=== PATIENT | male | born 1970 | race Caucasian/White ===

== ENCOUNTER 2017-07-27 22:31 | Emergency (ER) | payer MEDICARE ==
[~2017-07-27] VITALS: Ht 175.3 cm; Wt 93.2 kg
[2017-07-27 23:13] VITALS: BP 157/99; PULSE 88; RESP 16; TEMP 98.4; O2SAT 97
[2017-07-27 23:50] VITALS: BP 157/99; PULSE 88; RESP 16; TEMP 98.4; O2SAT 97
[2017-07-28] MEDS ORDERED: PERC5TAB12 PO (01:06)
[2017-07-28] MEDS ORDERED: CLIN1CAP6 PO (01:10)
[2017-07-28] MEDS ORDERED: IBUP800T23 PO (01:11)
[2017-07-28] MEDS ORDERED: KETOROLAC TROMETHAMINE 60 MG/2 ML (IM) VIAL IM ONE (01:15)
[2017-07-28] MEDS ORDERED: CLINDAMYCIN 150 MG CAP PO ONE (01:15)
--- NOTE | 2017-07-28 01:20 | PD ---
HPI Chief Complaint: Oral / Dental Pain or Problem Time Seen by Provider: 01:02 Travel History International Travel<30 days: No Contact w/Intl Traveler<30days: No Traveled to known affect area: No History of Present Illness HPI The patient is a 46-year-old male that complains of dental pain for 1 day. He has not called a dentist. He states he was chewing his food yesterday and felt his tooth crack and he felt the tooth into his gums. The pain is an aching pain with an intensity of 8/10. He denies any fever. PFSH Past Medical History Medical History: Denies Significant Hx Tetanus Vaccination: > 5 Years Influenza Vaccination: No Past Surgical History Surgical History: No Previous Surgery Social History Alcohol Use: Yes (MONTHLY) Tobacco Use: Yes (1 PPD) Substance Use: No Allergies-Medications (Allergen,Severity, Reaction): Coded Allergies: Penicillins (Verified Allergy, Unknown, 07/27/17) Reported Meds & Prescriptions Reported Meds & Active Scripts Active Ibuprofen 800 Mg Tab 800 Mg PO TID Clindamycin (Clindamycin HCl) 300 Mg Cap 300 Mg PO Q6H 10 Days Percocet (Oxycodone-Acetaminophen) 5-325 mg Tab 1 Tab PO Q4H PRN 20 Days Review of Systems Except as stated in HPI: all other systems reviewed are Neg Physical Exam Narrative GENERAL: The patient is alert, oriented 3 in moderate apparent distress with his dental pain. His vital signs show blood pressure 157/99 but are otherwise normal. SKIN: Focused skin assessment warm/dry. HEAD: Atraumatic. Normocephalic. EYES: Pupils equal and round. No scleral icterus. No injection or drainage. ENT: No nasal bleeding or discharge. Mucous membranes pink and moist. NECK: Trachea midline. No JVD. CARDIOVASCULAR: Regular rate and rhythm. No murmur appreciated. RESPIRATORY: No accessory muscle use. Clear to auscultation. Breath sounds equal bilaterally. GASTROINTESTINAL: Abdomen soft, non-tender, nondistended. Hepatic and splenic margins not palpable. MUSCULOSKELETAL: No obvious deformities. No clubbing. No cyanosis. No edema. NEUROLOGICAL: Awake and alert. No obvious cranial nerve deficits. Motor grossly within normal limits. Normal speech. PSYCHIATRIC: Appropriate mood and affect; insight and judgment normal. DENTAL: No loose or chipped teeth. No malocclusion. Tooth #6 shows apparent impaction into the gums, I cannot see the crack in the tooth. Data Data Last Documented VS Vital Signs Date Time Temp Pulse Resp B/P (MAP) Pulse Ox O2 Delivery O2 Flow Rate FiO2 07/27/17 23:50 98.4 88 16 157/99 (118) 97 Orders Orders Clindamycin (Cleocin) (07/28/17 01:15) Ketorolac Inj (Toradol Inj) (07/28/17 01:15) MDM Medical Decision Making Medical Screen Exam Complete: Yes Emergency Medical Condition: Yes Medical Record Reviewed: Yes Differential Diagnosis Impacted tooth, dental infection, dental pain, drainable abscess Narrative Course The tooth appears impacted and is having dental pain. There is no drainable abscess present. Diagnosis Primary Impression: Pain, dental Additional Instructions: It is necessary to follow-up with a dentist. The antibiotic is one tablet every 6 hours for 10 days. The dentist can decide whether to pull the tooth out into position or remove the tooth. Med/Other Pt SpecificInfo: Prescription(s) given Scripts Ibuprofen (Ibuprofen) 800 Mg Tab 800 MG PO TID, #33 TAB 0 Refills Prov: Tc Alvares MD 07/28/17 Clindamycin (Clindamycin) 300 Mg Cap 300 MG PO Q6H for Infection for 10 Days, CAP 0 Refills Prov: Tc Alvares MD 07/28/17 Oxycodone-Acetaminophen (Percocet) 5-325 mg Tab 1 TAB PO Q4H Y for PAIN for 20 Days, #20 TAB 0 Refills Prov: Tc Alvares MD 07/28/17 Disposition: 01 DISCHARGE HOME Condition: Stable Tc Alvares MD Jul 28, 2017 01:20
== END 2017-07-28 01:29 | disposition home or self-care (01) ==
LOC: PHED 22:31
DX: K08.89 Other specified disorders of teeth and supporting structures (principal); F17.210 Nicotine dependence, cigarettes, uncomplicated
CPT/HCPCS: 96372; 99284; J1885